=== PATIENT | female | born 1990 | race Caucasian/White ===

== ENCOUNTER 2018-01-03 23:48 | Emergency (ER) | payer OTHER ==
[2018-01-04 00:23] VITALS: BP 110/52; PULSE 75; TEMP 97.7; BMI 26.6
--- NOTE | 2018-01-04 01:22 | PDOC ---
History of Present Illness - General Chief Complaint: Pain Stated Complaint: ABD PAIN Time Seen by Provider: 01/04/18 00:28 History Source: Patient Exam Limitations: No Limitations - History of Present Illness Initial Comments: 01/04/18 01:09 Patient is a 27F with history of ovarian cysts and dysmenorrhea here today complaining of lower abdominal pain that onset suddenly in her right lower pelvis. Patient stated the pain onset while in the shower and caused her to collapse. Denies fevers, chills, nausea, vomiting. Denies vaginal pain, std history, dysuria, discharge. LMP 3 days ago. Denies constipation and diarrhea. Pain has improved. Past History - Past Medical History Allergies/Adverse Reactions: Allergies Allergy/AdvReac Type Severity Reaction Status Date / Time No Known Allergies Allergy Verified 01/04/18 02:37 Home Medications: Ambulatory Orders NK [No Known Home Medication] 01/04/18 - Suicide/Smoking/Psychosocial Hx Smoking Status: Yes Smoking History: Never smoked Have you smoked in the past 12 months: No Number of Cigarettes Smoked Daily: 20 Cigars Per Day: 0 Information on smoking cessation initiated: No Hx Alcohol Use: No Drug/Substance Use Hx: No Substance Use Type: None Review of Systems - Review of Systems Comments:: 01/04/18 01:56 GENERAL/CONSTITUTIONAL: No fever or chills. No weakness. HEAD, EYES, EARS, NOSE AND THROAT: No change in vision. No sore throat. CARDIOVASCULAR: No chest pain or shortness of breath RESPIRATORY: No cough, wheezing, or hemoptysis. GASTROINTESTINAL: No nausea, vomiting, diarrhea or constipation. GENITOURINARY: No dysuria, frequency, or change in urination. MUSCULOSKELETAL: No joint or muscle swelling or pain. No neck or back pain. SKIN: No rash NEUROLOGIC: No headache, vertigo, loss of consciousness, or change in strength/ sensation. ENDOCRINE: No increased thirst. No abnormal weight change HEMATOLOGIC/LYMPHATIC: No anemia, easy bleeding, or history of blood clots. ALLERGIC/IMMUNOLOGIC: No hives or skin allergy. *Physical Exam - Vital Signs Last Vital Signs Temp Pulse Resp BP Pulse Ox 97.7 F 75 18 110/52 L 99 01/03/18 23:50 01/03/18 23:50 01/03/18 23:50 01/03/18 23:50 01/03/18 23:50 - Physical Exam Comments: 01/04/18 01:57 GENERAL: Awake, alert, and fully oriented, in no acute distress PELVIC: Normal external genitalia, no cmt, +R adnexal tenderness, normal discharge HEAD: No signs of trauma, normocephalic, atraumatic EYES: PERRLA, EOMI, sclera anicteric, conjunctiva clear ENT: Auricles normal inspection, hearing grossly normal, nares patent, oropharynx clear without exudates. Moist mucosa NECK: Normal ROM, supple, no lymphadenopathy, JVD, or masses LUNGS: No distress, speaks full sentences, clear to auscultation bilaterally HEART: Regular rate and rhythm, normal S1 and S2, no murmurs, rubs or gallops, peripheral pulses normal and equal bilaterally. ABDOMEN: Soft, +suprapubic tenderness, normoactive bowel sounds. No guarding, no rebound. No masses EXTREMITIES: Normal inspection, Normal range of motion, no edema. No clubbing or cyanosis. NEUROLOGICAL: Cranial nerves II through XII grossly intact. Normal speech, normal gait, no focal sensorimotor deficits SKIN: Warm, Dry, normal turgor, no rashes or lesions noted. ED Treatment Course - LABORATORY CBC & Chemistry Diagram: 01/04/18 01:37 01/04/18 01:37 Medical Decision Making - Medical Decision Making 01/04/18 01:58 Patient is a 27F with history of ovarian cysts and dysmenorrhea here today with suprapubic pain, sudden onset. Vitals normal and stable. DDx includes, but is not limited to: ovarian cyst rupture, ovarian cyst, ovarian torsion, UTI. Patient requesting G/C and HIV testing. Will evaluate with cbc, cmp, lipase, ua , upreg, tvus. 01/04/18 02:48 CBC, CMP, Lipase normal. UA shows no infection. Upreg negative. TVUS shows bilateral cysts, 2 and 3cm with uterine fibroid. Patient's pain has improved. Will discharge home with OBGYN follow up. Does not wish to wait for HIV results , phone number given is [phone]. 01/04/18 06:19 HIV negative. *DC/Admit/Observation/Transfer Diagnosis at time of Disposition: Ovarian cyst, Fibroid - Discharge Dispostion Disposition: HOME Condition at time of disposition: Good Decision to Admit order: No - Referrals Schedule a call back: G/C Referrals: Oscar Seaman MD [Primary Care Provider] - - Patient Instructions Printed Discharge Instructions: DI for Uterine Fibroids, DI for Ovarian Cyst Additional Instructions: Please follow up with your OBGYN this week. Please return if you have any new, worsening or concerning symptoms, especially an increase in pain, fever or increased bleeding. - Post Discharge Activity
--- NOTE | 2018-01-04 01:40 | PDOC ---
Attending Attestation - Resident Resident Name: Keron Ordonez - ED Attending Attestation I have performed the following: I have examined & evaluated the patient, The case was reviewed & discussed with the resident, I agree w/resident's findings & plan - HPI HPI: 01/04/18 03:47 Pt comes with adnexal pain. Afebrile. No vag bleed; not . Eating normally; no N/V/D. - Physicial Exam PE: 01/04/18 03:47 Agree with resident exam. - Medical Decision Making 01/04/18 03:48 Patient Name: ROMI EDWARDS THIS IS A PRELIMINARY REPORT FROM [facility] DATE OF SERVICE: 2018-01-04 01:28:20 IMAGES: 94 EXAM: Transabdominal pelvic ultrasound, endovaginal pelvic ultrasound and pelvic duplex HISTORY: Right pelvic pain COMPARISON: None. FINDINGS: Transabdominal pelvic ultrasound:Uterus is anteverted and measures 8.1centimeters in length. Endovaginal pelvic ultrasound:The endometrium is notmillimeters in thickness which is normal. There is a 2.9 cm posterior fundal intramural fibroid. The right ovary measures 2.6centimeters in length, contains a 1.1 cm cyst and demonstrates normal flow. Left ovary measures 3.5centimeters in length, contains a 1.8 cm cyst demonstrates normal flow. There is no significant free fluid. Pelvic duplex: There is normal arterial and venous flow in both ovaries. IMPRESSION: Small bilateral ovarian cysts without torsion or free fluid. 2.9 cm posterior fundal intramural fibroid. 01/04/18 03:48 Labs normal; SONO shows only ovarian cysts and a small uterine fibroid and pt is HIV negative. chlmydia and gonorhea pending.
[2018-01-04 01:46] LABS: BASO % 0.2 % (0-2.0); EOS % 0.4 % (0-4.5); HEMATOCRIT 37.3 % (32.4-45.2); HEMOGLOBIN 12.4 GM/dL (10.7-15.3); MCH 28.8 pg (25.7-33.7); MCHC 33.3 g/dl (32.0-36.0); MEAN CELL VOLUME 86.4 fl (80-96); MONO % 5.3 % (3.8-10.2); NEUT % 77.1 % (42.8-82.8); PLATELET COUNT 269 K/MM3 (134-434); RBC 4.32 M/mm3 (3.60-5.2); WHITE BLOOD COUNT 8.5 K/mm3 (4.0-10.0)
[2018-01-04 01:49] LABS: URINE APPEARANCE CLOUDY; URINE BILIRUBIN NEGATIVE (<2.0 mg/dL); URINE COLOR YELLOW; URINE GLUCOSE (UA) NEGATIVE (NEGATIVE); URINE KETONE NEGATIVE (NEGATIVE); URINE LEUK ESTERASE NEGATIVE (NEGATIVE); URINE NITRITE NEGATIVE (NEGATIVE); URINE PROTEIN NEGATIVE (NEGATIVE); URINE UROBILINOGEN 4.0 E.U/dl mg/dL (0.2-1.0)
[2018-01-04 02:12] LABS: ALK PHOS 25 U/L (45-117); ANION GAP 8 MMOL/L (8-16); BILIRUBIN,TOTAL 0.3 mg/dL (0.2-1); BLOOD UREA NITROGEN 19 mg/dL (7-18); CALCIUM 9.4 mg/dL (8.5-10.1); CHLORIDE 105 mmol/L (98-107); CO2 27 mmol/L (21-32); CREATININE 0.6 mg/dL (0.55-1.3); GLUCOSE,RANDOM 90 mg/dL (74-106); LIPASE 140 U/L (73-393); POTASSIUM 3.7 mmol/L (3.5-5.1); SGOT/AST 18 U/L (15-37); SGPT/ALT 18 U/L (13-61); SODIUM 141 mmol/L (136-145); TOT PROT 7.3 g/dl (6.4-8.2)
== END 2018-01-04 03:04 | disposition home or self-care (01) ==
LOC: JER 23:48
DX: N83.01 Follicular cyst of right ovary (principal); D25.9 Leiomyoma of uterus, unspecified
CPT/HCPCS: 36415; 76830-TC; 80053; 81003; 83690; 84703; 85025; 87389; 87491; 87591; 99282-25